=== PATIENT | male | born 1975 | race Caucasian/White ===

== ENCOUNTER 2022-01-21 16:35 | Emergency (ER) | payer OTHER ==
[~2022-01-21] VITALS: Ht 177.8 cm; Wt 89.8 kg
[2022-01-21] MEDS ORDERED: ZESTRIL2.5 MG PO (16:44)
[2022-01-21] MEDS ORDERED: AMLODIPINE BESY10 MG PO (16:45)
[2022-01-21] MEDS ORDERED: METRONIDAZOLE500 MG PO (23:35)
[2022-01-21] MEDS ORDERED: PEPCID AC20 MG PO (23:35)
[2022-01-21] MEDS ORDERED: CIPRO500 MG PO (23:35)
== END 2022-01-22 02:09 | disposition home or self-care (01) ==
LOC: ER 16:35
DX: K52.9 Noninfective gastroenteritis and colitis, unspecified (principal)